=== PATIENT | male | born 1965 | race Caucasian/White ===

== ENCOUNTER → 2021-03-07 | Outpatient (CLI) | payer OTHER, SELFPAY ==
[2020-12-22 10:59] VITALS: BMI 27.7
[2021-03-07 09:55] LABS: ALB/GLOB Ratio 1.1 RATIO (0.9-2.4); AST(SGOT) 17 U/L (15-37); Alanine Aminotransfer ALT/SGPT 27 U/L (16-61); Albumin, Serum 3.7 g/dL (3.2-5.0); Alkaline Phosphatase 83 U/L (45-117); Anion Gap 3 (5-15); BUN 19 mg/dL (7-18); BUN/Creat Ratio 13.8 RATIO (10-20); Calcium,Total 9.1 mg/dL (8.5-10.1); Chloride 105 mmol/L (98-107); Cholesterol 190 mg/dL (200); Creatinine, Serum 1.38 mg/dL (0.70-1.30); EST Glomerular Filtration Rate 56 mL/min (>60); Est Glom Filt Rate - Afr Amer 68 mL/min (>60); Globulin 3.5 g/dL (2.2-4.2); Glucose 98 mg/dL (74-106); High Density Lipoprotein 47 mg/dL; Protein, Total 7.2 g/dL (6.4-8.2); Sodium Level 135 mmol/L (136-145); Triglycerides 117 mg/dL; Very Low Density Lipoprotein 23 mg/dL (5-40)
[2021-03-08 18:56] LABS: PSA, Free 0.42 ng/mL; PSA, Free % 6.1 % (.); PSA, Total Ultrasensitive 6.9 ng/mL (0.0-4.0)
== END | disposition home or self-care (01) ==
LOC: LABSPEC 09:03
PROVIDERS: PCP Family Medicine; Referring Provider Family Medicine; Visit Provider Family Medicine
DX: E78.00 Pure hypercholesterolemia, unspecified (principal); R97.20 Elevated prostate specific antigen [PSA]
CPT/HCPCS: 80053; 80061; 84153; 84154

== ENCOUNTER → 2021-04-18 16:53 | Outpatient (CLI) | payer OTHER, SELFPAY ==
[2020-12-22 10:59] VITALS: BMI 27.7
--- NOTE | 2021-04-18 | IMM_PTH ---
PATIENT: ATA MOYA LOC: [facility] U#:[id number] AGE/SX: 59/M ROOM: RE04/18/[address]: Dr. Jet Ac MD : 1965 BED: DIS: SPEC #: [id number] RECD: 04/20/21 12:45 STATUS: ABDELRAHMAN REQ #: [id number] BEE: 04/18/21 00:[address]: Jet Ac DEPT: IMMUNOHISTOCHEMISTRY RECD BY: Eufemia Razo ENTERED: 04/20/21 12:46 SP TYPE: IMMUNO OTHR DR: Dr. Diego García DO Tissues: A - PROSTATE RIGHT B - PROSTATE RIGHT D - PROSTATE LEFT E - PROSTATE LEFT F - PROSTATE LEFT Procedures: 34BE12 (add) P40 (add) 34BE12 (initial) PHYSICIAN & INSTITUTION [place] [id number] SPECIMEN INFORMATION: Tissue Source: A - Right apex, B - Right mid, D - Left apex, E - Left mid, F - Left base Clinical Info: R97.20, R80.42 Specimen Number: [id number] A, B, C-F CPT code: 27258, 85561 x9 METHODOLOGY: Deparaffinized sections of prefer/formalin-fixed tissue or PAP/DQ stained slides are incubated with monoclonal/polyclonal antibodies/oligonucleotide probes. Localization is made via biotin free immunoperoxidase method. Appropriate controls are performed and reacted as expected. Results on target cell population are indicated in the following table: RESULTS: ANTIBODY / CLONE RESULT Block A P40 (BC28) positive 34BE12 (34BE12) positive Block B P40 (BC28) negative 34BE12 (34BE12) negative Block D P40 (BC28) positive 34BE12 (34BE12) positive Block E P40 (BC28) negative 34BE12 (34BE12) negative Block F P40 (BC28) negative 34BE12 (34BE12) negative These tests were developed and their performance characteristics determined by [facility]. They may not have been cleared or approved by the U.S. Food and Drug Administration. The FDA has determined that such clearance or approval is not necessary. The above immunohistochemical/dualISH markers are ordered and reviewed by the Pathologist. INTERPRETATION: A. Right prostate, apex, core biopsy: Prostatic tissue, negative for malignancy. B. Right prostate, mid, core biopsy: Adenocarcinoma. D. Left prostate, apex, core biopsy: Focal high-grade prostatic intraepithelial neoplasia (HGPIN). E. Left prostate, mid, core biopsy: Two minute foci of adenocarcinoma. F. Left prostate, base, core biopsy: Focal atypical small acinar proliferation (SUZY). SJ:mingo 04/21/2021
--- NOTE | 2021-04-18 08:00 | PROSBIL_PTH ---
PATIENT: ATA MOYA LOC: [facility] U#:[id number] AGE/SX: 59/M ROOM: RE04/18/[address]: Dr. Jet Ac MD : 1965 BED: DIS: SPEC #: [id number] RECD: 04/18/21 16:20 STATUS: ABDELRAHMAN BHAVNA #: [id number] BEE: 04/18/21 08:[address]: Jet Ac DEPT: SURGICAL PATHOLOGY RECD BY: Judy Saenz ENTERED: 04/19/21 08:04 SP TYPE: PROST BX BRIT DR: Dr. Diego García DO Tissues: A - PROSTATE RIGHT B - PROSTATE RIGHT C - PROSTATE RIGHT D - PROSTATE LEFT E - PROSTATE LEFT F - PROSTATE LEFT Procedures: PROSTATE BX HEADER OPERATION: Prostate biopsy PRE-OP DIAGNOSIS: R97.20, R80.42 TISSUE SUBMITTED: A - Right apex, B - Right mid, C - Right base, D - Left apex, E - Left mid, F - Left base MICROSCOPIC DIAGNOSIS A. Right prostate, apex, core biopsy: Prostatic tissue, negative for malignancy. See comment. B. Right prostate, mid, core biopsy: Prostatic adenocarcinoma. [place] grade: 3+3=6 Number of cores involved: 1/2 Proportion of tissue involved: <5% Perineural invasion: Not identified. Greatest tumor length: 0.1 cm Focal high-grade prostatic intraepithelial neoplasia (HGPIN). Focal mild chronic inflammation. See comment. C. Right prostate, base, core biopsy: Prostatic adenocarcinoma. [place] grade: 3+3=6 Number of cores involved: 2/2 Proportion of tissue involved: ~75% Perineural invasion: Present, focal. Greatest tumor length: 0.8 cm D. Left prostate, apex, core biopsy: Focal high-grade prostatic intraepithelial neoplasia (HGPIN). See comment. E. Left prostate, mid, core biopsy: Two minute foci of prostatic adenocarcinoma. Godwin grade: 3+3=6 Number of cores involved: 2/2 Proportion of tissue involved: <5% Perineural invasion: Not identified. Greatest tumor length: 0.1 cm Focal high-grade prostatic intraepithelial neoplasia (HGPIN). Focal mild chronic inflammation. See comment. F. Left prostate, base, core biopsy: Focal atypical small acinar proliferation (SUZY). See comment. SJ:mingo 04/20/2021 COMMENT A, B & D-F - Immunohistochemistry ([id number]) supports the above diagnosis. Case has been reviewed in consultation with Dr. Perez who concurs with the above diagnosis. IDC:AM MICROSCOPIC DESCRIPTION Slides are reviewed. GROSS DESCRIPTION A - Received is one container designated prostate, right apex. The specimen consists of one elongated fragment of light lewis-white soft tissue measuring 1.5 cm in length and 0.1 cm in diameter. The specimen is totally submitted in one cassette. B - Received is one container designated prostate, right mid. The specimen consists of two elongated fragments of light lewis-white soft tissue each measuring 1.4 cm in length and 0.1 cm in diameter. The specimen is totally submitted in one cassette. C - Received is one container designated prostate, right base. The specimen consists of two elongated fragments of light lewis-white soft tissue each measuring 1 cm in length and 0.1 cm in diameter. The specimen is totally submitted in one cassette. D - Received is one container designated prostate, left apex. The specimen consists of one elongated fragment of light lewis-white soft tissue measuring 1.2 cm in length and 0.1 cm in diameter. The specimen is totally submitted in one cassette. E - Received is one container designated prostate, left mid. The specimen consists of two elongated fragments of light lewis-white soft tissue each measuring 1.1 cm in length and 0.1 cm in diameter. The specimen is totally submitted in one cassette. F - Received is one container designated prostate, left base. The specimen consists of two elongated fragments of light lewis-white soft tissue each measuring 1 cm in length and 0.1 cm in diameter. The specimen is totally submitted in one cassette. / RADHA:mingo 04/19/21 TC:0 CPT: 81701 x6
== END ==
LOC: LABSPEC 16:54
PROVIDERS: PCP Family Medicine; Visit Provider Urology
DX: R97.20 Elevated prostate specific antigen [PSA] (principal); Z80.42 Family history of malignant neoplasm of prostate
CPT/HCPCS: 88305; 88341; 88342; G0416

== ENCOUNTER 2021-06-22 05:50 | Day surgery (SDC) | payer OTHER, SELFPAY ==
[2020-12-22 10:59] VITALS: BMI 27.7
--- NOTE | 2021-06-17 11:03 | EKG12_ITS ---
Test Reason : PRE OP Blood Pressure : / mmHG Vent. Rate : 067 BPM Atrial Rate : 067 BPM P-R Int : 148 ms QRS Dur : 082 ms QT Int : 394 ms P-R-T Axes : 062 077 053 degrees QTc Int : 416 ms Normal sinus rhythm Normal ECG Confirmed by BOEY OSBORNE, SHYAM ([id number]), legal editor MAUREEN REESE ([id number]) on 06/20/2021 9:38:25 AM Referred By: Jet Ac Confirmed By:SHYAM BARNHART MD
[2021-06-17 12:30] LABS: Hemoglobin 14.2 g/dL (13.0-16.5); Mean Corp Hgb Conc 33.8 g/dL (32-36); Mean Corpuscular Hgb 30.7 pg (27.0-32.0); Mean Corpuscular Volume 90.9 fL (80-94); Mean Platelet Vol. 11.7 fl (6.2-12.0); Platelet Count 226 K/mm3 (150-450); RBC Distribution Width CV 13.2 % (11.6-14.6); RBC Distribution Width SD 43.9 fl (35.1-43.9); Red Blood Count 4.62 M/mm3 (4.6-6.2); White Blood Count 11.2 K/mm3 (4.4-11.0)
[2021-06-22] VITALS (15 sets, daily range): BP systolic 126–154; BP diastolic 66–101; PULSE 75–102; RESP 10–16; TEMP 36–37; O2SAT 94–100; BMI 29.0
[2021-06-22] MEDS: Lactated Ringers 1,000 ML 100 ML IV ×4 (07:00→13:31)
--- NOTE | 2021-06-22 07:23 | HP.PCM_ITS ---
HPI - General HPI Narrative ATA MOYA, is a 55 M who presents for treatment of prostate cancer with a radical prostatectomy working to proceed with a bilateral nerve sparing approach if possible he does have a high volume of disease on the right side of the prostate Godwin 6 per biopsy. Saw the patient in preop today all his questions were addressed regular proceed. [facility] Medical History (Updated 06/22/21 @ 07:[address] Jet Ac MD) Alcohol use Anxiety Cancer CPAP (continuous positive airway pressure) dependence Depression Deviated nasal septum Former smoker High cholesterol History of GI bleed History of ulceration Injury of head and neck Leg cramps Marijuana use Prostate disease Ruptured, gastric Wears glasses Home Medications atorvastatin 20 mg PO QHS 06/15/21 [History Last Taken 06/21/21] Allergy/AdvReac Type Severity Reaction Status Date / Time naproxen [From Aleve] Allergy Itching Verified 06/15/21 10:16 Surgical History (Updated 06/15/21 @ 10:27 by Argenis Brennan) Hx of colonoscopy Hx of tonsillectomy Social History (Updated 12/22/20 @ 15:34 by Adalberto MONCADA, PA) Smoking Status: Former smoker ROS Constitutional Constitutional: Denies chills, fever(s) or malaise Eyes Eyes: Denies blurry vision or change in vision ENT HEENT: Reports none Cardiovascular Cardiovascular: Denies chest pain or palpitations Respiratory/Chest Respiratory/Chest: Denies cough or shortness of breath with exertion Gastrointestinal Gastrointestinal: Denies abdominal pain, constipation or diarrhea Musculoskeletal Musculoskeletal: Denies back pain, joint stiffness or joint swelling Integumentary Integumentary: Denies dry skin, jaundice, lesions or rash Neurologic Neurologic: Denies confusion, syncope or weakness Psychiatric Psychiatric: Reports none; Denies anxiety or depression Endocrine Endocrinology: Denies excessive sweating, fatigue or flushing Hematologic/Lymphatic Hematologic/Lymphatic: Denies anemia, easy bleeding or easy bruising Vital Signs Vital Signs Vital Signs: 06/22/21 06:19 Temperature 98.1 F Temperature Source Temporal Pulse Rate 81 Respiratory Rate 16 Respiratory Pattern Normal Blood Pressure 126/86 H Blood Pressure Mean 99 Blood Pressure Source Monitor Blood Pressure Position Semi-Fowlers Blood Pressure Location Right Arm Pulse Ox 100 Oxygen Delivery Method Room Air Weight Weight: 79.3 kg Body Mass Index (BMI) 29.0 Physical Exam Const alert and oriented x3 General Appearance: cooperative HEENT normocephalic, head/scalp atraumatic, EAC's normal and TM's normal bilaterally Eyes PERRL and EOMs intact bilaterally Pupil: sluggish Neck no lymphadenopathy, supple and no JVD General: trachea midline Lymph Lymphatic: no lymphadenopathy noted, lymphedema and lymphadenopathy Resp normal respiratory effort, normal air movement and clear to auscultation bilaterally Cardio regular rate, regular rhythm and peripheral pulses 2+ throughout GI soft to palpation, non-tender and non-distended Extremity normal capillary refill and no clubbing, cyanosis or edema General Extremity: no tenderness to palpation of joints or extremities Skin no rashes or lesions noted General Skin Exam: turgor normal Lesions: no lesions Rashes: no rashes Neuro CN's II-XII intact bilaterally Speech: speech normal Motor Exam: strength 5/5 throughout; Negative for general weakness Psych thought process normal, cooperative and affect normal Appearance: appropriate Results Lab / Micro Data Result Diagrams: 06/17/21 11:15 Assessment & Plan Assessment/Plan (1) Prostate cancer: PLAN: Plan to proceed with a radical prostatectomy bilateral nerve sparing bilateral lymph node dissection for curative intent.
[2021-06-22] MEDS: Cefazolin 2 GM in 0.9% Normal Saline 100 ML IV (07:30)
--- NOTE | 2021-06-22 07:30 | PROST_PTH ---
PATIENT: ATA MOYA LOC[place] [facility] [place][id number] AGE/SX: 55/M ROOM: RE06/22/[address]: Dr. Jet Ac MD : 1965 BED: DIS: 06/23/2021 SPEC #: [id number] RECD: 06/22/21 12:42 STATUS: ABDELRAHMAN REAlisa #: [id number] BEE: 06/22/21 07:[address]: Jet Ac DEPT: SURGICAL PATHOLOGY RECD BY: Judy Saenz ENTERED: 06/22/21 13:27 SP TYPE: PROSTATE OTHR DR: Dr. Diego García DO Tissues: A - Prostate, NOS B - Lymph node of pelvis, NOS C - Lymph node of pelvis, NOS D - TISSUE SURGICALLY REMOVED Procedures: Surgery Specimen Level III Surgery Specimen Level V Surgery Specimen Level HEADER OPERATION: Lap robotic radical prostatectomy, nerve sparing PRE-OP DIAGNOSIS: Prostate cancer TISSUE SUBMITTED: A - Prostate, B - Right pelvic lymph node, C - Left pelvic lymph node, D - Fat over prostate MICROSCOPIC DIAGNOSIS A. Prostate, radical prostatectomy: Prostatic adenocarcinoma. See cancer summary in the comment section. B. Right pelvic lymph nodes: Four out of four lymph nodes, negative for metastatic carcinoma. C. Left pelvic lymph nodes: Three out of three lymph nodes, negative for metastatic carcinoma. D. Fat over prostate: Mature adipose tissue, negative for carcinoma. SJ:mingo 06/24/2021 COMMENT A. PROSTATE CANCER (RADICAL) SUMMARY: Procedure: Radical Prostatectomy Prostate Size: Weight: 37 gm Size: 4 cm transversely, 3 cm anterior-posteriorly and 3 cm craniocaudally Histologic grade: Godwin grade group 2 (Godwin score 3+4=7) Tumor Quantitation: Estimated percentage of prostate involved by tumor - ~30% The tumor involves apical, mid and basal portion of right lobe of the prostate and measures approximately 3 x 2 x 1 cm (estimated by microscopic measurement). Tumor involves apical, mid and basal portion of left lobe and present in discontinuous manner and measures 0.7 x 0.5 cm (measured microscopically). Extraprostatic Extension: Present, focal (right lateral lobe prostate). Urinary Bladder Neck Invasion: Not applicable Seminal Vesicle Invasion: not identified. Lymphvascular Invasion: Not identified Perineural Invasion: Present, frequent Margins: Involved by invasive carcinoma. The tumor is present at apical margin of the prostate and measures 0.4 cm in greatest dimension. Treatment Effect: No known presurgical therapy. Regional Lymph Nodes: Number of lymph nodes involved: 0 Number of Lymph Nodes Examined: 7 Additional Pathologic Findings: Focal high-grade prostatic intraepithelial neoplasia (HGPIN). - Benign prostatic hyperplasia, glandular and stromal type. - Chronic inflammation. Ancillary studies: Not performed PATHOLOGIC STAGE: pT3a pN0 pMx The above summary is in compliance with [employer] (CAP) Cancer Protocols Checklist and [place] [employer] Committee on Cancer (AJCC), Staging Manual, 8th Ed. Please make reference to previous specimen ([id number]) right prostate, mid and base and left prostate, mid, core biopsies with diagnosis of ?adenocarcinoma? and left prostate, apex, core biopsy with diagnosis of ?focal high-grade prostatic intraepithelial neoplasia? and left posterior, base, core biopsy with diagnosis of ?focal atypical small acinar proliferation.? MICROSCOPIC DESCRIPTION Slides are reviewed. GROSS DESCRIPTION A - Received in fixative is one container labeled with the patient's name and designated prostate. The specimen consists of a radical prostatectomy specimen consisting of prostate and bilateral seminal vesicles and vas deferens weighing 37 gm. The prostate measures 4 cm transversely, 3 cm anterior-posteriorly and 3 cm craniocaudally. The right seminal vesicle measures 2.5 x 1 x 0.5 cm and the right vas deferens measures 2.5 cm in length and 0.5 cm in diameter. The left seminal vesicle measures 2 x 1 x 0.7 cm and the left vas deferens measures 3 cm in length and 0.5cm in diameter. The prostate is inked as follows: anterior - yellow, posterior - black, right lateral surface - blue, left lateral surface - green. The bilateral seminal vesicles and vas deferens are inked as follows: posterior surface - black, anterior surface right seminal vesicle and vas deferens - blue and anterior surface left seminal vesicle and vas deferens - green. Sections do not reveal any obvious mass lesion. Tour [place]ort sections are submitted in 18 cassettes as follows: 1 - right seminal vesicle and vas deferens, 2 - left seminal vesicle and vas deferens, 3 - apical margin prostate, enface, 2 - basal margin, bladder base margin prostate, 4 & 5 - basal margin prostate, enface, 6-10 - apical portion prostate, 11-14 - middle portion prostate, 1518 - basal portion prostate. / SJ: 06/23/2021 B - Received in fixative is one container labeled with the patient's name and designated right pelvic lymph node. The specimen consists of a piece of adipose tissue measuring 3 x 3 x 0.5 cm. One lymph node is identified measuring 2.5 cm in greatest dimension. The entire specimen is submitted in two cassettes as follows: 1 - bisected lymph node, 2 - rest of the specimen. Sections will be submitted after fixation. / : 06/22/21 C - Received in fixative is one container labeled with the patient's name and designated left pelvic lymph node. The specimen consists of a piece of adipose tissue measuring 2.5 x 2.5 x 0.5 cm. No obvious lymph node is identified. The entire specimen is submitted in two cassettes. Sections will be submitted after fixation. / : 06/22/21 D - Received in fixative is one container labeled with the patient's name and designated fat over prostate. The specimen consists of a piece of adipose tissue measuring 5 x 2.5 x 0.5 cm. No mass lesion is identified. The entire specimen is submitted in two cassettes. Sections will be submitted after fixation. / : 06/22/21 TC:0 CPT: 38243, 50388 x2, 09417
--- NOTE | 2021-06-22 07:34 | PCM.DC ---
Discharge Instructions Diet Discharge Diet: No restrictions Activity Discharge Activity: May Not Drive (while taking narcotic pain medications.) Dressing / Incision Call your doctor if your incision/area has: Increased Pain/ Swelling, Increased Redness and Swelling at the incision site Call your doctor if you observe: Fever of 101 or Higher Suture Line Care: Avoid Pulling/Pushing and Avoid Pinching/Bending Catheter: Cabrera to leg bag and [place]rera to large bag Drain: [place] Additional Dressing/Incision Instructions:: okay to shower, no Lifting Follow Up Care Please Follow Up With: Jet Ac MD When: Call [phone] for an appointment Test Results: Test results from this visit will be discussed in further detail at your follow-up appointment, if applicable. Discharge Plan Admission Primary Reason for Your Visit: RADICAL PROSTATECTOMY Attending Provider: Jet Ac Primary Care Provider: Diego García Instructions Patient Instructions: Radical Prostatectomy Dc Discharge Orders/Prescriptions Prescriptions: New docusate sodium [Colace] 100 mg capsule 100 mg PO BID Qty: 20 RF: 0 oxycodone-acetaminophen 5-325 mg tablet 1 tab PO Q6H PRN (Reason: pain) 7 Days Qty: 14 RF: 0 ciprofloxacin HCl [Cipro] 500 mg tablet 500 mg PO BID 10 Days Qty: 20 RF: 0 Continued atorvastatin 20 mg Tablet 20 mg PO QHS RF: 0 Referrals / Follow Up: Diego García DO [Primary Care Provider] - Jet Ac MD [STAFF PHYSICIAN] - Disposition Disposition (needs filled in before D/C Order can be placed): Home, Self Care
[2021-06-22] MEDS: Lubricating Jelly 60 GM Tube 30 GM TOPICAL (07:57)
[2021-06-22] MEDS: Bupivacaine Mpf 0.5% 30 ML VIAL (11:30)
--- NOTE | 2021-06-22 11:35 | OP.PCM_ITS ---
Report of Operation Date of Procedure: 06/22/21 Pre-Operative Diagnosis: Prostate cancer Post-Operative Diagnosis: The same Surgery/Procedure Performed:: Laparoscopic robotic assisted radical prostatectomy and bilateral pelvic lymph node dissection Description of Surgical Findings:: Patient presented to the hospital for treatment of his prostate cancer with radical prostatectomy. In the preoperative setting we discussed the options of management for his prostate cancer including active surveillance, radiation treatments, radioactive seeds, and radical robotic prostatectomy. We discussed the side effects of surgery including the potential to lose erections. We discussed the potential to have bladder control problems with stress incontinence which can be temporary or permanent. We discussed the risk of the surgery including the risk of general anesthetic, risk of bleeding, risk of infection, and risk of formation of hernia either incisional hernia or inguinal hernia. After long discussion with the patient the preoperative setting and also reviewed this in the preop area patient signed the consent form and we proceeded with a radical prostatectomy. Patient was taken back to the operating room he was identified, time out procedure was performed and he was placed supine on the table he underwent general anesthesia with intubation. The abdomen was shaved prepped and draped in usual sterile fashion as well as the penis and testicles. A 16 [place] Ze[place]ander catheter was placed into the bladder with clear return of urine. I then made an incision in the umbilicus and dissected down to the fascia advance a Veress needle into the peritoneal cavity and insufflated the peritoneal cavity with CO2 gas. I then placed a 12 mm trocar above the umbilicus. I then visualized the placement of the rest of the trochars, I placed a right arm robotic trocar, and air seal trocar, a suction port 5 mm trocar. And on the left side I placed 2 robotic arms. Once all the trochars were in placed the patient was put in steep Trendelenburg. And the robot was docked the arms were docked and then I placed the 0 degree camera through the robotic arm and also used a 30 degree camera during certain parts of the case. I used scissors in the right arm, prograsp in the third arm, and a bipolar in the second arm. Initial dissection was to free the sigmoid colon off the lateral wall this was done by meticulously dissecting off the peritoneum and the sigmoid colon off the left lateral wall. This then allowed the prograsp to retract the sigmoid colon out of the pelvis. I then went below the bladder and identified the vas deferens incised the peritoneum over the vas deferens and traced the vas deferens below the bladder to the prostate and identified the right and left vasa deferens. Below behind the vas deferens then the seminal vesicles were identified. I then dissected the seminal vesicle free using pinpoint electrocautery and then we identified the other seminal vesicle and then dissected this using pinpoint electrocautery I then elevated the vas deferens and several vesicles off the prostate and was able to sweep the Denonvilliers' fascia off the prostate posteriorly all the way up to the apex of the prostate. Working laterally I made sure I went as lateral as possible to sweep the Denonilliers' fascia off the posterior aspect of the prostate and worked my way back, I then transected the vas deferens and the l eft and right side the seminal vesicles were then dissected free. And then I pulled out of the pelvis. At this point the bladder was dropped creating the space of Retzius with the bladder on traction with the fourth arm. Using electrocautery I dissected in the anterior peritoneal fascia and then created the space of Retzius dissecting towards the prostate. At this point the left iliac vessels were identified and the lymphatic tissue and lymph nodes of the left pelvic wall from the obturator space were identified I dissected the lymph node packet off the lateral wall of the pelvis between the left nerve obturator nerve lateral lateral sidewall and then noted Omer using clips the lymph node packet was removed completely off the left side and sent off as a specimen, I then went to the right side identified the right iliac vein cleaned off the vein and then in front of the vein the lymph node dissection was performed using clips identifying the dielectric machine operator nerve and the boundaries of the obturator canal and then once the lymph nodes were removed on the right side then clips were placed. I then proceeded with the dissection to the prostate. The prostate was then cleaned of the fat over the prostate and the fourth arm was used to retract the bladder and place traction. I then identified the endopelvic fascia that was overlying the prostate on the right side I incised endopelvic fascia and wwept the levator muscles off the prostate all the way to the apex on the right side, I then worked my way anterior to the prostate then transected to the puboprostatic ligament and the underlying dorsal vein complex was not injured. I then went to the other side and identified the endopelvic fascia in the left side incised in a fashion the left side and swept the levator muscles off the prostate on the left side all the way up to the apex the puboprostatic ligament on the left side was then dissected and transected I then freed up the fascia overlying the dorsal vein complex. I then used the prograsp to encircled the dorsal vein complex with the prograsp and then switched over to the right and left needle belly dump driver and suture ligated the dorsal vein complex above the prograsp. The prograsp was then placed back in the bladder and put back on traction I then identified the junction between the bladder and the prostate and dissected down between the bladder and the prostate untilI came across the catheter we then dissected posteriorly to the bladder and prostate to free the prostate and the bladder off each other and the muscles between the bladder and the prostate was then cauterized to free up the bladder. I then went on top of the prostate and identified the endopelvic fascia on top of the prostate this was incised all the way to the apex and then we swept the endopelvic fascia off the prostate laterally and then identified the plane between endopelvic fascia and the prosthetic pseudocapsule and swept the fascia laterally until reaching the course of the neurovascular bundles and then released the neurovascular bundles off the prostate laterally all the way back in a retrograde fashion back to the junction of the pedicles then the prostate was placed on traction with the fourth arm pulling the prostate laterally identified the pedicle to the prostate between the seminal vesicles and the and the neurovascular bundle and this was taken using sequential small hemolocks. After the pedicle was taken the I then dissected underneath the prostate sweeping the neurovascular bundle off the prostate we able to follow the nice smooth plane between the neurov ascular bundle and the pseudocapsule all the way to the apex once this was identified we swept this up all the way up to the apex and there was perfect nerve sparing on the right side. Then went to the left side the prostate identified the endopelvic fascia over the left side of the prostate I incised the endopelvic fascia all the way to the apex and then swept this off laterally I then released the neurovascular bundles on the left side of the prostate sweeping him off the prostate laterally I then elevated the prostate up up with the prostate and traction identified the pedicle to the prostate on the left side and then the pedicles taken with sequential Hem-o-sury clips I then was able to dissected the neurovascular bundle off the left posterior aspect the prostate this was a perfect dissection all the way up on the left side following the pseudocapsule all the way up the left side until we reached the apex of the prostate. After the both the neurovascular bundles has been swept off the posterior to the prostate I then went above and transected the dorsal vein complex there was minimal to no bleeding but then dissected down to the urethra and circumfencial dissected around the urethra I then switched the right and left arm with the needle drivers and I suture-ligated the dorsal vein complex again just to ensure that there was no bleeding from the dorsal vein complex. I then transected through the urethra with scissors and the prostate was then freed and released off the prostate bed and put an Endo Catch bag. At this point the bladder neck was reconstructed and then an anastomosis was performed between the prostate and the bladder with a 3 oh V-Loc stitch in a running fashion starting from the bladder neck at the 6 o'clock position working to the 12 o'clock position with continuous stitches to complete a perfect anastomosis between the bladder and the prostate. I then placed a new catheter into the bladder, an 18 [place] tip catheter flushed the bladder and there was no leakage from the anastomosis I put 10 cc in the balloon and pulled it up pulled back gently. I then ensured that there was no bleeding from the dorsal vein complex no bleeding from the neurovascular bundles FloSeal was placed as necessary once hemostasis was ensured and adequate then I placed the bladder back in position in the pelvis the prostate was exchanged to the camera port I closed the air seal port with a 10 12 Vinny Canela stitch. And the extracted the prostate through the umbilicus. The robot was undocked all the ports were removed under direct visualization then closed the extraction site with 0 Vicryl with a CT1 needle once the extraction site was closed. I then closed all the incision with subcuticular stitches with 4-0 Monocryl and then bandages were placed on the incisions catheter was flushed to make sure it was draining well there was no clots and it was crystal clear patient's anesthetic was reversed he was extubated and taken back to the PACU in stable condition all the needles and sponges and instruments were accounted for. Blood loss was minimal and the drain was a 18 [place]ander Arroyo catheter. No other surgical drain was left. I was present during the entire case. Surgeon: guido Type of Anesthesia: General Drains: 20fr arroyo Estimated Blood Loss (mL): 500cc Admit VTE Documentation VTE Present on Admission: No VTE Mechan Device Prophylaxis: SCD's
[2021-06-22] MEDS: Ciprofloxacin 400 MG/200 ML BAG 200 MG IV (15:19)
[2021-06-22] MEDS: 0.9% Saline Lock 10 ML Syringe IV (15:20)
[2021-06-22] MEDS: Ketorolac 15 MG/ML Vial IV ×2 (15:20→20:33)
[2021-06-22] MEDS: Lactated Ringers 1,000 ML 150 ML IV ×2 (15:21→20:33)
[2021-06-22] MEDS: HYDROcodone Bitartrate/Apap 5/325 Tablet PO (18:12)
[2021-06-22] MEDS: Atorvastatin Calcium 20 MG Tablet PO (20:34)
--- NOTE | 2021-06-22 22:35 | PCS.PANDOC ---
PANDEMIC DOCUMENTATION INITIATED: Date: 06/06/2021 Time: 190
[2021-06-23 00:05] VITALS: BP 138/77; PULSE 81; RESP 18; TEMP 36.9; O2SAT 99
[2021-06-23] MEDS: Morphine 2 MG/ML Syringe 1 MG IV (00:06)
[2021-06-23] MEDS: 0.9% Saline Lock 10 ML Syringe IV ×2 (00:06→07:54)
[2021-06-23] MEDS: Ketorolac 15 MG/ML Vial IV ×2 (02:57→07:53)
[2021-06-23] MEDS: Ciprofloxacin 400 MG/200 ML BAG 200 MG IV (02:57)
[2021-06-23] MEDS: Lactated Ringers 1,000 ML 150 ML IV (02:58)
[2021-06-23 03:00] VITALS: BP 144/81; PULSE 77; RESP 18; TEMP 36.8; O2SAT 99
[2021-06-23 07:40] VITALS: BP 130/88; PULSE 85; RESP 16; TEMP 36.7; O2SAT 99
--- NOTE | 2021-06-23 11:39 | CHAPLAIN ---
Type of Pastoral Visit _x__ Initial Visit ___ Follow-up Visit ___ On-call Visit ___ General Patient Visit ___ Spiritual Assessment ___ Family Conference ___ Bereavement ___ Rapid Response ___ Code Blue ___ Other (describe below) Pastoral Care Referral From _x__ Patient ___ Family ___ Nurse ___ Physician ___ Limo Driver ___ Supervisor General ___ Other (describe below) Sacrament/Intervention _x__ Active listening ___ Anointing ___ Yazdanism ___ Bereavement ___ Communion ___ Josy exploration ___ ___ Life review _x__ Prayer ___ Reconciliation ___ Sacrament of Sick ___ Supportive presence ___ Wedding ___ Other (describe below) Pastoral Comments
== END 2021-06-23 13:05 | disposition home or self-care (01) ==
LOC: SDC 05:53 → AC 05:54 → ACINP 12:09 → MS3 16:27
PROVIDERS: Anesthesiology; PCP Family Medicine; Referring Provider Urology; Visit Provider Urology
PROC: 0VT04ZZ Resection of Prostate, Percutaneous Endoscopic Approach (ICD-10-PCS; CPT 55866; principal; 2021-06-22 07:10)
DX: C61 Malignant neoplasm of prostate (principal); E78.00 Pure hypercholesterolemia, unspecified; Z87.891 Personal history of nicotine dependence; Z79.899 Other long term (current) drug therapy; G47.30 Sleep apnea, unspecified
CPT/HCPCS: 38571; 55866; 36415; 85027; 88304; 88305; 88307; 88309; 93005; 99251; J7120; A4216; G0463; J0744; J2405

== ENCOUNTER → 2021-08-18 16:26 | Outpatient (CLI) | payer OTHER, SELFPAY ==
[2021-08-18 17:58] LABS: PSA,Total- Diagnostic < 0.01 ng/mL (0.0-4.0)
== END ==
PROVIDERS: PCP Family Medicine; Referring Provider Urology; Visit Provider Urology
DX: R97.20 Elevated prostate specific antigen [PSA] (principal)
CPT/HCPCS: 36415; 84153

== ENCOUNTER 2021-11-07 15:59 | Outpatient (CLI) | payer OTHER, SELFPAY ==
[2021-11-07 16:10] VITALS: BP 129/87; PULSE 93; RESP 16; TEMP 36.8; O2SAT 98; BMI 28.3
[2021-11-07] MEDS: 0.9% Saline Lock 10 ML Syringe IV (16:23)
[2021-11-07 16:54] VITALS: BP 120/76; PULSE 68; RESP 16; TEMP 36.8; O2SAT 98
[2021-11-07 17:54] VITALS: BP 122/79; PULSE 72; RESP 16; TEMP 36.9; O2SAT 98
== END 2021-11-07 23:59 | disposition home or self-care (01) ==
LOC: MS3OUT 15:59 → MS3 16:00
PROVIDERS: PCP Family Medicine; Referring Provider Nurse Practitioner Adult Health; Visit Provider Nurse Practitioner Adult Health
DX: U07.1 COVID-19 (principal)
CPT/HCPCS: J7050; M0245; Q0245; A4216

== ENCOUNTER 2021-12-12 16:14 | Outpatient (CLI) | payer OTHER, SELFPAY ==
[2021-12-12 17:28] LABS: PSA,Total- Diagnostic < 0.01 ng/mL (0.0-4.0)
== END 2021-12-12 23:59 | disposition home or self-care (01) ==
LOC: LAB 16:15
PROVIDERS: PCP Family Medicine; Referring Provider Urology; Visit Provider Urology
DX: C61 Malignant neoplasm of prostate (principal)
CPT/HCPCS: 36415; 84153

== ENCOUNTER → 2022-06-12 | Outpatient (CLI) | payer OTHER, SELFPAY ==
[2022-06-12 17:16] LABS: PSA,Total- Diagnostic < 0.01 ng/mL (0.0-4.0)
== END | disposition home or self-care (01) ==
LOC: LAB 16:15
PROVIDERS: PCP Family Medicine; Referring Provider Urology; Visit Provider Urology
DX: C61 Malignant neoplasm of prostate (principal)
CPT/HCPCS: 36415; 84153

== ENCOUNTER 2023-05-22 09:41 | Day surgery (SDC) | payer OTHER, SELFPAY ==
[2023-05-22] VITALS (7 sets, daily range): BP systolic 87–130; BP diastolic 44–83; PULSE 56–88; RESP 18; TEMP 36.3–36.6; O2SAT 96–98; BMI 27.5
--- NOTE | 2023-05-22 09:44 | HP.PCM_ITS ---
History and Physical Date of Admission: 05/22/23 Visit Reasons: SCREENING SCOPE Chief Complaint: SCREENING SCOPE Allergies naproxen [From Aleve] Allergy (Verified 04/30/23 13:59) Itching PFSH Medical History Alcohol use Anxiety Cancer COVID-19 CPAP (continuous positive airway pressure) dependence Depression Deviated nasal septum Former smoker High cholesterol History of GI bleed History of ulceration Injury of head and neck Leg cramps Marijuana use Prostate disease Ruptured, gastric Wears glasses Surgical History Hx of colonoscopy Hx of tonsillectomy Social History Smoking Status: Former smoker HPI HPI HPI: 57-year-old gentleman is referred by the [facility] for surgical consultation regarding colon cancer screening and the need for screening colonoscopy. A written copy my surgical consult recommendations will return to them. Provided history demonstrates the patient's had prostate cancer diagnosed in 2020 and has had a prostatectomy. He has also had inguinal and umbilical hernia repairs. Most recent laboratory as of March 05, 2023 demonstrates a BUN of 15 and creatinine 1.3 with a glucose of 97. Liver function tests were normal. Cholesterol slightly elevated 207. TSH was normal at 1.85. His white blood cell count was 12.1 with a hemoglobin 14.4 medical 43.3 platelet count 247,000. He does have a 14-czru-okys history of cigarette smoking but quit in 2005. By report his most recent colonoscopy was 10 years prior. The patient has a history of gastric perforation with repair as well. Among his other medications he is on dexamethasone 4 mg daily. Very pleasant 57-year-old gentleman. Previous colonoscopy 10 years ago. Family history his father had colon cancer. The patient himself denies abdominal pain bright red blood per rectum or melena. Note no unexpected weight loss. He does note that he was a previous smoker but quit with the assistance of hypnosis. No history of DVT. ROS General General: No weight change, appetite, fatigue, colon cancer, breast cancer or weakness HEENT HEENT: No difficulty swallowing, eye injury, eye surgery, swollen glands or hoarseness Endo Endocrine: No thyroid disease, diabetes mellitus, thyroid cancer, Hair loss, heat intolerance or cold intolerance Skin Skin: Yes changing moles; No rash Breast Breast: No left breast lump, right breast lump, nipple discharge, breast pain, abnormal mammogram, abnormal US or breast enlargement Musc Musculoskeletal: Yes back problems; No arthritis, rheumatoid arthritis, gout or joint pain Cardio Cardiovascular: No murmur, pacemaker, heart disease, atrial fibrillation, high b lood pressure, heart attack, heart stent, palpitations, shortness of breat with exertion or chest pain Psych Psychiatric: No depression, anxiety or hearing voices Resp Respiratory: No shortness of breath, Yes sleep apnea, No cough, No COPD, No asthma, No emphysema and No wheezing Gastro Gastrointestinal: No abdominal pain, No nausea or vomiting, No diarrhea, No constipation, No blood in stool, No acid reflux, Yes hemorrhoids, No ulcers, No gallbladder problem and No black,tarry stools Chemo Hematologic: No blood thinners, No blood disorders, No bleeding, No anemia and No blood clots Neuro Neurologic: No system reviewed and no additional complaints, except as documente d, No as per HPI, No abnormal gait, No abnormal hearing, No abnormal movements, No abnormal speech, No behavioral changes, No burning sensations, No confusion, No convulsions, No disequilibrium, No dizziness, No localized weakness, No frequent falls, No headache(s), No lack of coordination, No loss of vision, No memory loss, No numbness, No other visual disturbances, No radicular pain, No restless legs, No sensory deficit, No syncope, No tingling, No tremor(s), No weakness and No other Exam Const General: cooperative, healthy appearing, comfortable and no acute distress [facility] Head: normal to inspection Eyes General: appearance normal, both eyes and all related structures Neck Neck: normal visual inspection Chest Chest palpation & inspection: normal inspection of the chest Resp Effort & Inspection: normal respiratory effort Auscultation: clear to auscultation bilaterally Cardio Rate: regular rate Rhythm: regular rhythm GI Inspection: normal to inspection Musc Cervical Spine: normal cervical lordosis Skin General: no rashes or lesions noted Neuro General: patient alert, patient awake and patient oriented x3 Extrem General: normal to inspection and no calf tenderness Psych Appearance: grossly normal Assessment and Plan Assessment and Plan (1) Screening for intestinal cancer: Status: Acute Plan: 57-year-old gentleman. Previous colonoscopy 10 years ago. Family history of colon cancer in his father. He is asymptomatic clinically. I propose for him a screening colonoscopy with possible biopsy or polypectomy as indicated. He is aware of the technique, benefit, risk and alternatives. He had an opportunity ask and have questions answered. We will schedule and proceed at his discretion. I will utilize monitored anesthesia care. I appreciate the opportunity of assisting with the surgical care. Copy: [facility] Félix Beckford M.D., F.A.C.S I have examined the patient and the H&P has been reviewed. There are no clinical changes since date of exam. Félix Beckford M.D., F.A.C.S.
[2023-05-22] MEDS: Lactated Ringers 1,000 ML 15 ML IV (09:45)
--- NOTE | 2023-05-22 10:45 | COLBX_PTH ---
PATIENT: ATA MOYA LOC: EN U#:[id number] AGE/SX: 57/M ROOM: RE05/22/[address]: Dr. Félix Beckford MD : 1965 BED: DIS: 05/22/2023 SPEC #: [id number] RECD: 05/22/23 13:34 STATUS: ABDELRAHMAN BHAVNA #: [id number] BEE: 05/22/23 10:[address]: Félix Beckford DEPT: SURGICAL PATHOLOGY RECD BY: Judy Saenz ENTERED: 05/23/23 09:35 SP TYPE: COLON BX OT DR: [facility] Tissues: Rectum, NOS Procedures: Surgery Specimen Level IV HEADER OPERATION: Colonoscopy with biopsy PRE-OP DIAGNOSIS: Screening TISSUE SUBMITTED: Rectal polyp biopsy MICROSCOPIC DIAGNOSIS Rectal polyp, biopsy: Hyperplastic polyp. AM:mingo 05/24/2023 MICROSCOPIC DESCRIPTION Slides are reviewed. GROSS DESCRIPTION Received in fixative is one container labeled with the patient's name and designated rectal polyp. The specimen consists of one irregular fragment of light lewis soft tissue that measures 0.3 x 0.2 x 0.1 cm. The specimen is totally submitted in one cassette. / AM:mingo 05/23/2023 TC:5 CPT: 44050
--- NOTE | 2023-05-22 11:53 | OP.COLON_ITS ---
Patient Name: Trino Arora Procedure Date: 05/22/2023 11:33 AM Date of : 1965 Age: 57 Procedure: Colonoscopy Indications: Screening for colorectal malignant neoplasm Providers: Félix Beckford MD Medicines: See the Anesthesia note for documentation of the administered medications Patient Profile: Last Colonoscopy: 10 years ago. Complications: No immediate complications. Procedure: Pre-Anesthesia Assessment: - Prior to the procedure, a History and Physical was performed, and patient medications and allergies were reviewed. The patient's tolerance of previous anesthesia was also reviewed. The risks and benefits of the procedure and the sedation options and risks were discussed with the patient. All questions were answered, and informed consent was obtained. Prior Anticoagulants: The patient has taken no previous anticoagulant or antiplatelet agents. ASA Grade Assessment: II - A patient with mild systemic disease. After reviewing the risks and benefits, the patient was deemed in satisfactory condition to undergo the procedure. After I obtained informed consent, the scope was passed under direct vision. Throughout the procedure, the patient's blood pressure, pulse, and oxygen saturations were monitored continuously. The adult colonoscope was introduced through the anus and advanced to the cecum, identified by appendiceal orifice and ileocecal valve. The colonoscopy was performed without difficulty. The patient tolerated the procedure well. The quality of the bowel preparation was good. The ileocecal valve and the appendiceal orifice were photographed. Scope In: 11:36:32 AM Scope Withdrawal Time 0 hours 6 minutes 25 seconds Scope Out: 11:47:07 AM Total Procedure Duration Time 0 hours 10 minutes 35 seconds Findings: The digital rectal exam findings include non-thrombosed internal hemorrhoids and internal hemorrhoids that prolapse with straining, but spontaneously regress to the resting position (Grade II). Pertinent negatives include normal prostate (size, shape, and consistency). A 4 mm polyp was found in the rectum. The polyp was sessile. The polyp was removed with a cold biopsy forceps. Resection and retrieval were complete. The exam was otherwise without abnormality. Impression: - Non-thrombosed internal hemorrhoids and internal hemorrhoids that prolapse with straining, but spontaneously regress to the resting position (Grade II) found on digital rectal exam. - One 4 mm polyp in the rectum, removed with a cold biopsy forceps. Resected and retrieved. - The examination was otherwise normal. Recommendation: - Discharge patient to home. - Resume previous diet. - Continue present medications. - Repeat colonoscopy in 5 years for surveillance based on pathology results. - Telephone my office for pathology results in 1 week. Procedure Code(s): --- Professional --- 38572, Colonoscopy, flexible; with biopsy, single or multiple Diagnosis Code(s): --- Professional --- Z12.11, Encounter for screening for malignant neoplasm of colon K64.1, Second degree hemorrhoids K62.1, Rectal polyp CPT copyright 2017 [employer] [place] [employer]. All rights reserved. The codes documented in this report are preliminary and upon classroom assistant review may be revised to meet current compliance requirements. Félix Beckford MD 05/22/2023 11:53:27 AM This report has been signed electronically. Number of Addenda: 0 Note Initiated On: 05/22/2023 11:33 AM
--- NOTE | 2023-05-22 11:54 | OP.CCLET_ITS ---
05/22/2023 [facility] Re : Colonoscopy procedure for [facility] This procedure was performed on Monday, May 22, 2023. My impressions and recommendations are as follows: Impressions : - Non-thrombosed internal hemorrhoids and internal hemorrhoids that prolapse with straining, but spontaneously regress to the resting position (Grade II) found on digital rectal exam. - One 4 mm polyp in the rectum, removed with a cold biopsy forceps. Resected and retrieved. - The examination was otherwise normal. Recommendations : - Discharge patient to home. - Resume previous diet. - Continue present medications. - Repeat colonoscopy in 5 years for surveillance based on pathology results. - Telephone my office for pathology results in 1 week. My findings are described in the full procedure note, which is enclosed. If I can be of further assistance, please feel free to contact me at Doctor phone number(s): Work: . Sincerely, Félix Beckford MD 05/22/2023 11:53:27 AM This report has been signed electronically.
== END 2023-05-22 12:35 | disposition home or self-care (01) ==
LOC: EN 09:42 → AC 09:43
PROVIDERS: Visit Provider Surgery
PROC: 0DJD8ZZ Inspection of Lower Intestinal Tract, Via Natural or Artificial Opening Endoscopic (ICD-10-PCS; CPT 45378; principal; 2023-05-22 10:40)
DX: Z12.11 Encounter for screening for malignant neoplasm of colon (principal); K64.1 Second degree hemorrhoids; E78.00 Pure hypercholesterolemia, unspecified; Z80.0 Family history of malignant neoplasm of digestive organs; K62.1 Rectal polyp; Z87.891 Personal history of nicotine dependence; Z86.16 Personal history of COVID-19
CPT/HCPCS: 45380; 88305; J7120; J2405